=== PATIENT | male | born 1960 | race Caucasian/White ===

== ENCOUNTER 2023-11-04 16:41 | Emergency (ER) | payer OTHER ==
[~2023-11-04] VITALS: Ht 182.9 cm; Wt 83.9 kg
[2023-11-04 16:48] VITALS: BP 150/102
== END 2023-11-04 19:05 | disposition home or self-care (01) ==
LOC: ER 16:41
DX: T14.90XA Injury, unspecified, initial encounter (principal); M54.50 Low back pain, unspecified; M54.2 Cervicalgia; V89.2XXA Person injured in unspecified motor-vehicle accident, traffic, initial encounter
CPT/HCPCS: 72040; 72070; 72100; 73502; 96372; 99284-25; J1885